=== PATIENT | male | born 1975 | race Caucasian/White ===

== ENCOUNTER 2024-01-14 07:48 | Emergency (ER) | payer OTHER, SELFPAY ==
[2024-01-14] VITALS (7 sets, daily range): BP systolic 108–149; BP diastolic 72–111; PULSE 88–106; RESP 17–21; TEMP 36.4–36.9; O2SAT 97–99
--- NOTE | ~2024-01-14 | CT_ITS ---
EXAMINATION: CT abdomen pelvis w con DATE: 01/14/2024 08:56 INDICATION: Abdominal pain. TECHNIQUE: Computed tomography (CT) of the abdomen and pelvis was performed with 100 mL Omnipaque 350 intravenous contrast. Automated exposure control and iterative reconstruction technique were employe d. The dose-length product was 1723.53 mGy-cm. COMPARISON: CT abdomen and pelvis 06/12/2009 FINDINGS: The visualized portions of the lung bases demonstrate mild atelectasis in the right. No ple ural effusion. The heart size is normal. There is a stent in left anterior descending coronary artery . No pericardial effusion. There are 2 hypodense masses in the liver measuring up to 16 mm. The gallb ladder, spleen, pancreas, and adrenal glands are normal. There are cysts in the kidneys measuring up to 2.4 cm on the left. There is a left inguinal hernia containing fat. There is liquid stool in the c olon suggesting diarrhea. The appendix is normal. There are no pathologically enlarged lymph nodes. T here is no free intraperitoneal fluid. There is mild thoracic and lumbar spondylosis. There is mild c hronic anterior wedging of T12 and L1 vertebral bodies. IMPRESSION: 1. Two liver masses measuring up to 16 mm, which may be benign or metastatic disease, new from 06/12/19 10. Abdomen MRI without and with contrast is recommended. 2. Left inguinal hernia containing fat. Reviewed, dictated and finalized at location A. IMPRESSION: 1. Two liver masses measuring up to 16 mm, which may be benign or metastatic andrea pedersen, new from 06/12/2009. Abdomen MRI without and with contrast is recommended. 2. Left inguinal hernia containing fat.
--- NOTE | ~2024-01-14 | XR_ITS ---
XR chest 2V Ordering provider: Brennon Skelton MD History: 48 years Male with . chest pain N/V . Comparison: March 11, 2023 FINDINGS: MEDIASTINUM: The cardiac silhouette is not enlarged. LUNGS: No infiltrates, effusions or pneumothorax. Slightly prominent markings in the left lung base medially. OTHER: No free air under the diaphragm. Degenerative changes of the spine. IMPRESSION: No acute cardiopulmonary pathology. Reviewed, dictated and finalized at location A.
--- NOTE | 2024-01-14 07:51 | ECG_ITS ---
Test Date: 2024-01-14 07:54:27 Measurements Intervals [place] Rate: 106 P: -1 [place]: 136 QRS: 74 QRSD: 88 T: 52 QT: 320 QTc: 425 Interpretive Statements SINUS TACHYCARDIA BASELINE ARTIFACT- I, II, III, AVR, AVL, AVF BORDERLINE ECG No previous ECG available for comparison Electronically Signed On 01-14-2024 07:56:16 CDT by Mauro Marcos D.O.
[2024-01-14] MEDS: ONDANSETRON INJ 4 MG/2 ML VIAL IV PUSH (08:24)
[2024-01-14] MEDS: SODIUM CHLORIDE 0.9% IV 1,000 ML 999 ML IV CONT (08:24)
[2024-01-14 08:28] LABS: Basophils Absolute Auto 0.1 K/mm3 (0.0-0.1); Basophils Percent Auto 0.5 % (0.2-1.2); Eosinophils Absolute Auto 0.2 K/mm3 (0-0.3); Eosinophils Percent Auto 1.2 % (0-4.4); Hematocrit 45.2 % (42.0-52.0); Immature Granulocyte Percent A 0.7 % (0-0.5); Lymphocytes Absolute Auto 0.48 K/mm3 (0.9-3.2); Lymphocytes Percent Auto 3.2 % (18.3-44.2); Mean Corpuscular HGB Conc 35.4 g/dl (32-36); Mean Corpuscular Hemoglobin 30.5 pg (26-34); Mean Corpuscular Volume 86.3 fl (80-100); Mean Platelet Volume 8.5 fl (7.4-10.4); Monocytes Absolute Auto 0.7 K/mm3 (0.1-0.6); Monocytes Percent Auto 4.9 % (2.6-8.5); Neutrophils Absolute Auto 13.4 K/mm3 (1.3-6.7); Neutrophils Percent Auto 89.5 % (45.5-73.1); Platelet Count Result 229 k/mm3 (150-375); Red Blood Count 5.24 M/mm3 (4.6-6.20); Red Cell Distribution Width 13.9 % (11.5-14.5)
[2024-01-14 08:31] LABS: Alanine Aminotransferase 38 U/L (6-50); Albumin Level 4.4 g/dL (3.5-5.1); Alkaline Phosphatase 91 U/L (38-126); Anion Gap 12 mmol/L (4-12); Aspartate Amino Transferase 30 U/L (17-59); Bilirubin,Total 1.7 mg/dL (0.2-1.3); Blood Urea Nitrogen 26 mg/dL (9-20); Carbon Dioxide 22 mmol/L (22-30); Chloride 100 mmol/L (98-107); Estimated CRCL calculation 85 ml/min; Estimated Glomerular Filt Rate 59; Glucose 127 mg/dL (65-110); Lipase 98 U/L (23-300); Potassium 3.8 mmol/L (3.4-5.0); Sodium 134 mmol/L (137-145)
[2024-01-14 08:43] LABS: Troponin I < 0.012 ng/mL (0.000-0.034)
[2024-01-14] MEDS: ASPIRIN 81 MG CHEWABLE TABLET 324 MG PO (09:11)
[2024-01-14 09:17] LABS: Partial Thromboplastin Time 26.8 Seconds (22.3-36.8)
--- NOTE | 2024-01-14 11:19 | ECG_ITS ---
Test Date: 2024-01-14 11:48:39 Measurements Intervals [place] Rate: 101 P: 14 ID: 163 QRS: 74 QRSD: 85 T: 41 QT: 333 QTc: 433 Interpretive Statements SINUS TACHYCARDIA BASELINE ARTIFACT- I, II, III BORDERLINE ECG Compared to ECG 01/14/2024 07:54:27 No significant changes Electronically Signed On 01-14-2024 12:08:35 CDT by Mauro Marcos D.O.
--- NOTE | 2024-01-14 11:34 | ED.GENADULT ---
HPI - General Adult General Chief complaint: Unspecified Stated complaint: multiple complaints Time Seen by Provider: 01/14/24 08:03 History of Present Illness HPI narrative: Patient is a 40-year-old gentleman presents emergency department with chief complaint of diarrhea and vomiting. Patient reports that he was recently treated for gout and reports that he is currently on colchicine the patient states he has had multiple bouts of diarrhea since last week patient states that he had a little bit of an uncomfortable feeling in his left arm and decided to come to the emergency department as he has had prior history of an [place]. Related Data Allergies Allergy/AdvReac Type Severity Reaction Status Date / Time No Known Allergies Allergy Verified 01/14/24 07:56 Review of Systems Review of Systems: A 10 system review of systems was completed on the patient and is negative except for what is stated in the HPI. Nursing and ancillary documentation was reviewed. Exam Narrative: GENERAL: Well-appearing, well-nourished, and in no acute distress. HEAD: Normocephalic, atraumatic. EYES: PERRLA and EOMI. ENT: Nares clear, no rhinorrhea or epistaxis. Mucous membranes moist. NECK: Supple. CHEST: Clear to auscultation. No respiratory distress. HEART: Regular rate and rhythm. No murmur heard. Normal peripheral pulses. ABDOMEN: Soft, tenderness to palpation throughout the abdomen, nondistended, normal active bowel sounds. EXTREMITIES: Normal range of motion. No edema. SKIN: Warm, dry, no rash. NEURO: No focal deficits. Alert and oriented x3. PSYCH: Normal mood and affect. Course Vital Signs Vital signs: Vital Signs Temperature 36.6 C 01/14/24 07:51 Pulse Rate 106 H 01/14/24 07:51 Respiratory Rate 20 01/14/24 07:51 Blood Pressure 149/101 H 01/14/24 07:51 Pulse Oximetry 97 01/14/24 07:51 Oxygen Delivery Room Air 01/14/24 07:51 Temperature 36.4 C 01/14/24 09:31 Pulse Rate 102 H 01/14/24 11:36 Respiratory Rate 21 H 01/14/24 11:36 Blood Pressure 108/72 01/14/24 11:36 Pulse Oximetry 98 01/14/24 11:36 Oxygen Delivery Room Air 01/14/24 07:51 Medical Decision Making MDM Narrative Medical decision making narrative: Differential diagnosis includes intra-abdominal infection, gastroenteritis, ACS Laboratory studies were obtained on the patient which showed a white count of 15.0 hemoglobin was 16.0 electrolytes showed a bilirubin 1.7 troponin was 0 hour 3 hour An EKG showed no acute ischemic changes Chest x-ray showed no focal infiltrate CT scan of the abdomen pelvis showed 1. Two liver masses measuring up to 16 mm, which may be benign or metastatic disease, new from 06/12/2009. Abdomen MRI without and with contrast is recommended. 2. Left inguinal hernia containing fat Vital Signs Vital Signs: Vital Signs Temperature 36.6 C 01/14/24 07:51 Pulse Rate 106 H 01/14/24 07:51 Respiratory Rate 20 01/14/24 07:51 Blood Pressure 149/101 H 01/14/24 07:51 Pulse Oximetry 97 01/14/24 07:51 Oxygen Delivery Room Air 01/14/24 07:51 Temperature 36.4 C 01/14/24 09:31 Pulse Rate 102 H 01/14/24 11:36 Respiratory Rate 21 H 01/14/24 11:36 Blood Pressure 108/72 01/14/24 11:36 Pulse Oximetry 98 01/14/24 11:36 Oxygen Delivery Room Air 01/14/24 07:51 Lab Data 01/14/24 08:20 01/14/24 08:01 Labs: Lab Results 01/14/24 01/14/24 01/14/24 Range/Units 08:01 08:20 11:09 WBC 15.0 H (4.5-10.0) K/mm3 RBC 5.24 (4.6-6.20) M/mm3 Hgb 16.0 (14.0-18.0) g/dL Hct 45.2 (42.0-52.0) % MCV 86.3 (80-100) fl MCH 30.5 (26-34) pg MCHC 35.4 (32-36) g/dl RDW 13.9 (11.5-14.5) % Plt Count 229 (150-375) k/mm3 MPV 8.5 (7.4-10.4) fl Immature Gran % (Auto) 0.7 H (0-0.5) % Neut % (Auto) 89.5 H (45.5-73.1) % Lymph % (Auto) 3.2 L (18.3-44.2) % Page % (Auto) 4.9 (2.6-8.5) % Eos % (Auto
[2024-01-14 11:38] LABS: Troponin I < 0.012 ng/mL (0.000-0.034)
== END 2024-01-14 13:00 | disposition home or self-care (01) ==
PROVIDERS: Emergency Provider Emergency Medicine; PCP Internal Medicine Infectious Disease
DX: R11.2 Nausea with vomiting, unspecified (principal); R19.7 Diarrhea, unspecified
CPT/HCPCS: 36415; 71046; 74177; 80053; 83690; 84484; 85025; 85610; 85730; 93005; 96361; 96374; 99284; A9270; J2405; J7030; Q9967

== ENCOUNTER 2024-07-28 08:30 | Emergency (ER) | payer OTHER, SELFPAY ==
--- NOTE | ~2024-07-28 | XR_ITS ---
XR elbow RT min 3V Ordering provider: Roberto Graves III, DO History: . swelling, redness, pain, NKI . Comparison: None. FINDINGS: BONES: No acute fracture or dislocation. JOINT SPACES: Normal. SOFT TISSUES: Soft tissue swelling is possibly seen laterally. No definite joint effusion. Ossificati on of the insertion of the triceps tendon. IMPRESSION: No acute osseous abnormality of the right elbow. Ossification of the insertion of the triceps tendon. Reviewed, dictated and finalized at location A.
[2024-07-28 08:37] VITALS: BP 187/107; PULSE 78; RESP 16; TEMP 36.6; O2SAT 99
--- OUTSIDE RECORDS SUMMARY | 2024-07-28 08:54 | XMS_ITS | CONTINUITY OF CARE DOCUMENT ---
Author Name patrice ibrahim Address Unknown Organization [facility] Address [address] [place] [address] Phone [phone] Care Team Providers Care Resort Host Name Role Phone patrice ibrahim Unavailable Unavailable INSURANCE PROVIDERS Payer name Policy type / Coverage type Leo red green party ID [facility] [id number]
--- OUTSIDE RECORDS SUMMARY | 2024-07-28 08:54 | XMS_ITS | Clinical Summary ---
Author Organization [facility] Address [address] [place] [id number] Care Team Providers Care Gift Shop Assistant Name Role Phone Unavailable Primary Care Provider Unavailabl e Social History Tobacco Use Types Packs/Day Years Used Date Smoking Tobacco: Never Assessed Sex and Gender Information Value Date Recorded Sex Assigned at Not on file Legal Sex Male 8:47 PM CDT Gender Identity Not on file Sexual Orientation Not on file Last Filed Vital Signs Vital Sign Reading Time Taken Comments Blood Pressure - - Pulse 72 10/02/2017 3:11 PM CDT Temperature - - Respiratory Rate - - Oxygen Saturation - - Inhaled Oxygen Concentration - - Weight 125.4 kg (276 lb 6.1 oz) 10/02/2017 3:11 PM CDT Height 182.9 cm (6') 10/02/2017 3:11 PM CDT Body Mass Index 37.48 10/02/2017 3:11 PM CDT Plan of Treatment Health Maintenance Due Date Last Done Comments Colorectal Cancer Screening Colonoscopy (10 Years) 1975 Annual Physical 11/12/1978 Hepatitis C 11/12/1993 DTaP, Tdap and Td Vaccines ( 1 - Tdap) 11/12/1994 Hepatitis B Vaccines (1 of 3 - 19+ 3-dose series) 11/12/1994 COVID-19 Vaccine (2023-2 5 season) 2024 Influenza Adult (#1) 2024 Meningococcal B Vaccine Aged Out No l onger eligible based on patient's age to complete this topic Meningococcal Vaccine Aged Out No [place] eligible based on patient's age to complete this topic Pneumococcal Vaccine: Pediat rics (0 to 5 Years) and At-Risk Patients (6 to 64 Years) Aged Out No longer eligible b ased on patient's age to complete this topic RSV Immunizations Under 20 Months Aged Out No longer eligible based on patient's age to complete this topic
--- OUTSIDE RECORDS SUMMARY | 2024-07-28 08:54 | XMS_ITS | Clinical Summary ---
Author Organization [facility] Address [address] [place] [address] Care Team Providers Care Property Management Specialist Name Role Phone Delfino Younger MD Primary Care Provider Allergies Active Allergy Reactions Criticality Noted Date Comments Lisinopril Headache Low 04/06/2023 Medications ibuprofen 200 mg tab/cap Take 1 tablet/capsu le (200 mg total) by mouth every 6 (six) hours as needed for pain Active colchicine (COLCRYS) 0.6 mg tablet Take 1 tablet (0.6 mg total) by mouth daily 01/01/2024 Active atorvastatin (LIPITOR) 40 mg tablet TAKE 1 TABLET BY MOUTH EVERY DAY 90 tablet 3 04/08/2024 Active aspirin 81 mg chewable tablet TAKE 1 TABLET BY MOUTH EVERY DAY 90 tablet 3 04/08/2024 Active lisinopriL (PRINIVIL,ZESTR IL) 40 mg tablet TAKE 1 TABLET BY MOUTH EVERY DAY IN THE MORNING 90 tablet 3 04/08/2024 Active metoprolol XL (TOPROL-XL) 25 mg extended release tablet TAKE 1 TABLET (25 MG TOTAL) BY MOUTH DAILY. 90 tablet 3 04/08/2024 Active Brilinta 90 mg tablet TAKE 1 TABLET BY MOUTH 2 TIMES A DAY. 60 tablet 11 04/14/2024 Active Active Problems Problem Noted Date Diagnosed Date Mixed hyperlipidemia 10/08/2023 Coronary artery disease invo lving [place] coronary artery of [place] heart without angina pectoris 04/06/2023 STEMI (ST elevation myocardial infarction) 03/12 NSTEMI (non-ST elevated myocardial infarction) 1 05/12/2022 Former smoker 02/01/2015 Overview (08/10/2016): Ex smoker Knee pain 02/01/2015 Overview (08/10/2016): Knee pain Hypertension 02/01/2015 Overview (08/10/2016): Hypertension Migraine 02/01/2015 Overview (08/10/2016): Migraines Medical History Medical History Date Comments Hx Other Medical Bone cyst remov al 1983; [facility] - Hx Other Medical Right heel repl aced 1984.; Comments: [facility]2015 - Hx Other Medical Kidney stent 19 & 1993.; Comments: [facility] 02/02/2015 - Hx Other Medical Hernia 2005.; C omments: [facility] 02/02/2015 - Hx Other Medical Abdominal absce ss 2009.; Comments: [facility] 02/[facility]/2015 - Hx Other Medical Right carpal an d cubital tunnel release 2014.; Comments: [facility] 02/02/2015 - Hypertension Family History Medical History Relation Name Comments Valvular heart disease Father Other Other Family history of diabetes, hypertension, and arthritis.; Relation Name Status Comments Father Other Social History Tobacco Use Types Packs/Day Years Used Date Smoking Tobacco: Former Cigarettes Smokeless Tobacco: Never Tobacco Cessation:Counseling Given: Not Answered [facility] Utilities Answer Date Recorded In the past 12 months has Your [employer], [facility], or water [employer] threatened to shut off services in your home? No 03/15/2023 Social Connection and Isolat ion Panel [NHANES] Answer Date Recorded In a typical week, how many times do you talk on the phone with family, friends, or neighbors? More than three times a week 03/15/2023 How often do you get togethe r with friends or relatives? More than three times a week 03/15/2023 How often do you attend [facility] or scientology services? Never 03/15/2023 Do you belong to any clubs o r organizations such as sikhism groups, unions, fraternal or athletic groups, or school groups? No 03/15/2023 How often do you attend meet ings of the clubs or organizations you belong to? Never 03/15/2023 Are you , , di vorced, , never , or living with a partner? 03/15/2023 Overall Financial Resource Strain (CARDIA) Answe r Date Recorded How hard is it for you to pa y for the very basics like food, housing, medical care, and heating? Not hard at all 03/15/2023 Hunger Vital Sign Answer Date Recorded Within the past 12 months, y ou worried that your food would run out before you got the money to buy more. Never true 03/15/20 23 Within the past 12 months, t he food you bought just didn't last and you didn't have money to get more. Never true 03/15/2023 PRAPARE - Transportation Answer Date Re corded In the past 12 months, has l ack of transportation kept you from medical appointments or from getting medications? No 01/2023 In the past 12 months, has l ack of transportation kept you from meetings, work, or from getting things needed for daily living? No 03/15/2023 Housing Stability Vital Sign Answer Parker e Recorded In the last 12 months, was t here a time when you were not able to pay the mortgage or rent on time? No 03/15/2023 In the last 12 months, how many places have you lived? 1 03/15/2023 In the last 12 months, was t here a time when you did not have a steady place to sleep or slept in a half-way (including now)? No 03/15/2023 Personal Safety Answer Date Recorded Have you ever been in or are you currently in a harmful physical or emotional relationship or is someone making you feel afraid or unsafe? 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 Gender Identity Not on file Sexual Orientation Not on file Obstetrics History Last Filed Vital Signs Vital Sign Reading Time Taken Comments Blood Pressure 116/80 01/09/2024 2:20 PM CDT Pulse 86 01/09/2024 2:20 PM CDT Temperature 36.6 C (97.9 F) 03/15/2023 4:00 AM SUPERINTENDENT MARINE Respiratory Rate 22 03/15/2023 10:07 AM SUPERINTENDENT MARINE Oxygen Saturation 98% 01/09/2024 2:20 PM CDT Inhaled Oxygen Concentration - - Weight 122.9 kg (271 lb) 01/09/2024 2:20 PM CDT Height 182.9 cm (6') 01/09/2024 2:20 PM CDT Body Mass Index 36.75 01/09/2024 2:20 PM CDT Plan of Treatment Health Maintenance Due Date Last Done Comments Colon Cancer Screening-Colonoscopy 1975 Depression Screening 1975 Hepatitis C Screening 1975 DTaP/Tdap/Td Vaccine (1 - Tdap) 11/12/1986 Hepatitis B Screening 11/12/1993 Regular Well Visit/Exam 18-64 11/12/1993 Covid-19 Vaccine ( season) 2024 02/26/2021, 08/12/2020 Influenza Vaccine (#1) 2024 , 04/09/2017, 06/01/2016, Additional history exists Pneumococcal vaccine <65 Aged Out No longer eligible based on patient's age to complete this topic Medical Devices Implanted Type Area Cellar Pumper Device Identifier Shelf Expiration Date Model / Serial / Lot [employer] Stent Drug Eluting S Megatron Mr [id number] - [id number] - [id number] Implanted:Qty: 1 on 03/13/2023 by Josiah Del Rosario MD at [facility] Stent Left: Anterior Descending Cornary Artery [employer] 07/04/2023 [id number] / [id number] / [id number] Insurance [facility] CHO[facility] PLUS [facility] CHOICE PLUS [facility] CHOICE PLUS Advance Directives For more information, please contact: [phone] * Full Code (Latest Code Status on File) Date Activated Date Inactivated Comments 03/12/2023 5:49 PM 03/15/2023 3:57 PM Care Teams Property Management Specialist Relationship Specialty Start Date End Date Delfino Younger MD PCP - General Family Medicine 03/15/23
--- OUTSIDE RECORDS SUMMARY | 2024-07-28 08:54 | XMS_ITS | Patient Health Record ---
Author Organization [facility] yessy Address [address] [address] [place] [address] Care Team Providers Care Steam Press Tender Name Role Phone Delfino Younger Primary Care Provider Haylie Miller Unavailable [phone] Allergies No Known Allergies Results Component Value Reference Range Notes CRP (C-REACTIVE PROTEIN) Reviewed date:01/03/2024 11:38:16 AM Interpretation: Performing Lab:[facility], [address] [place] [address], [id number] Notes/Report: C-Reactive Protein 22.0 0.0-10.0 mg/L RHEUMATOID FACTOR (RF), MALINI TITATIVE Reviewed date:01/03/2024 11:38:17 AM Interpretation: Performing Lab:[facility], [address] [place] [address], [id number] Notes/Report: Rheumatoid Factor, Quantitative Interpretation Negative Negative RF, Quantitation <10 <=14 IU/mL URIC ACID Reviewed date:01/03/2024 11:38:17 AM Interpretation: Performing Lab:[facility], [address] [place] [address], [id number] Notes/Report: Uric Acid 9.5 4.4-7.6 mg/dL CMP(COMPREHENSIVE METABOLIC PANEL) Reviewed date:01/03/2024 11:38:17 AM Interpretation: Performing Lab:[facility], [address] [place] [address], [id number] Notes/Report: Sodium 135 133-146 mmol/L Potassium 3.6 3.5-5.1 mmol/L Chloride 99 98-107 mmol/L Carbon Dioxide 26 21-31 mmol/L Anion Gap 10 4-13 mmol/L Blood Urea Nitrogen 17 7-25 mg/dL Creatinine 1.35 0.60-1.30 mg/dL eGFRcr (CKD-EPI 2020) 65 >=60 mL/min/1.73 m2 Calcium 9.6 8.3-10.5 mg/dL Glucose 105 70-100 mg/dL Protein, Total 7.2 6.4-8.3 g/dL Albumin 4.2 3.5-5.0 g/dL ALT 13 11-51 units/L Alkaline Phosphatase 107 34-104 units/L AST 12 13-39 units/L Bilirubin, Total 2.5 0.2-1.2 mg/dL CBC W/DIFF Reviewed date:01/03/2024 11:38:17 AM Interpretation: Performing Lab:[facility], [address] [facility], [place], [address] Notes/Report: WBC 12.7 3.5-10.5 10'3/uL RBC 5.14 (Based on docume nted legal sex) 4.30-5.80 10'6/uL HGB 15.1 (Based on docume nted legal sex) 13.0-17.5 g/dL HCT 43.9 (Based on docume nted legal sex) 38.0-50.0 % MCV 85.4 80.0-99.0 fL MCH 29.4 27.0-34.0 pg MCHC 34.4 32.0-35.5 g/dL RDW 13.6 11.0-15.0 % PLT 239 150-400 10'3/uL MPV 9.1 8.8-12.1 fL NRBC's 0.0 0.0 % Absolute NRBCs 0.0 No reference ran ge established 10'3/uL Neutrophils 83.6 34.0-73.0 % Lymphocytes 9.2 15.0-50.0 % Monocytes 5.5 1.0-15.0 % Eosinophils 0.8 0.0-8.0 % Basophils 0.7 0.0-2.0 % Immature Granulocytes 0.2 No defined reference range % Absolute Neutrophils 10.6 1.5-8.0 10'3/uL Absolute Lymphocytes 1.2 1.0-4.0 10'3/uL Absolute Monocytes 0.7 0.2-1.0 10'3/uL Absolute Eosinophils 0.1 0.0-0.6 10'3/uL Absolute Basophils 0.1 0.0-0.3 10'3/uL Absolute Immature Granulocytes 0.0 0.00-0.10 10'3/uL 01/02/2024 5:16 AM: P indicates partial results on a panel have been released. Additional results will follow. 01/02/2024 5:16 AM: This result has been final verified. No additional or changed results are expected. SEDIMENTATION RATE, ESR Reviewed date:01/03/2024 11:38:17 AM Interpretation: Performing Lab:[facility], [address] [place] [address], [id number] Notes/Report: Sedimentation Rate 66 (Based on doc umented legal sex) 0-15 mm/Hour CYCLIC CITRULLINATED PEPTIDE (CCP) AB, IgG/IgA Reviewed date:01/03/2024 11:38:17 AM Interpretation: Performing Lab:[facility], [address] [place] [address], [id number] Notes/Report: CCP Antibodies 5 0-19 units Negative <20 Weak positive 20 - 39 Moderate positive 40 - 59 Strong positive >59 Performed at: [address] [place] [id number] Teacher Visually Impaired: Murray Wolfe PhD, Phone: [phone] G6PD, QUANTITATIVE, RBC Reviewed date:01/03/2024 11:38:17 AM Interpretation: Performing Lab:[address], [address] Notes/Report: G-6-PD, RBC 20.6 7.0-20.5 U/g Hgb Performing Organization Information: Site ID: Name[facility] Address: [address] [place] [id number] Director: Callum Valencia MIA SCREEN/REFLEX TITER/STEPHANIE LEAH Reviewed date:01/03/2024 11:38:17 AM Interpretation: Performing Lab:[address], [address] Notes/Report: Anti-Nuclear Antibody Negative Negative MIA titers and patterns are performed using an immunofluorescence assay technology. Follow up testing for positive specimens, if required, is performed using multiplex bead technology. Reason For Referral No Information Medications Medication SIG (Take, Route, Frequency, Duration) Notes Start Date End Date Status Metoprolol Succinate ER 25 MG 1 tablet O rally Once a day for 30 day(s) Active Atorvastatin Calcium 40 MG 1 tablet Oral ly Once a day for 30 day(s) Active Colchicine 0.6 MG TAKE 1 TABLET BY MACI TH TWICE A DAY FOR 30 DAYS for 30 Active Brilinta 90 MG TAKE 1 TABLET BY MACI TH 2 TIMES A DAY. Oral for 30 Days Active hydroCHLOROthiazide 25 MG 1 tablet in th e morning Orally Once a day for 30 day(s) Active Lisinopril 40 MG 1 tablet Orally Once a day for 30 day(s) Active Aspirin 81 81 MG 1 tablet Orally Once a day for 30 day(s) Active Social History Tobacco Use: Social History Observation Description Date Details (start date - stop date) Former Smoker NA - NA Tobacco Control (Standard) Question Answer Notes Tobacco use: Former smoker How long has it been since you last smoked? 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) Active confirmed Problem Tobacco user (807858567) Nicotine dependence, unspecified, uncomplicated (F17.200) 3 Active confirmed Problem Adult health examination (083739585) Encounter for general adult medical examination without abnormal findings (Z00.00) 3 Active confirmed Problem Essential hypertension (13739454) Essential (primary) hypertension (I10) 3 Active confirmed Vital Signs Heart Rate 93 /min 01/01/2024 Temperature 98.1 degrees Fahrenheit 01/01/2024 Height-cm 182.88 cm 12/24/2023 Blood pressure diastolic 80 mm Hg 01/01/2024 Oximetry 98 % 01/01/2024 Weight-kg 123.17 kg 12/24/2023 Height 72 in 01/01/2024 Blood pressure systolic 110 mm Hg 01/01/2024 Weight 271.6 lbs 12/24/2023 BMI 36.83 kg/m2 12/24/2023 Encounters Encounter Location Date Provider Diagnosis [facility] [address] [place] [address] 09/06/2023 Delfino Aren Impacted cerumen of right ear H61.21 ; Tobacco use disorder, severe, in sustained remission F17.201 and Mid back pain M54.9 [facility] [address] [place] [address] 12/24/2023 Delfino Aren Acute gout of left foot, unspecified cause M10.9 [facility] [address] [place] [address] 01/01/2024 Haylie Miller Pain in unspecified joint M25.50 ; Idiopathic chronic gout of right foot without tophus M1A.0710 and Pain of foot, unspecified laterality M79.673 [facility] [address] [place] [address] 11/22/2023 Delfino Aren [facility] [address] [place] [address] 12/10/2023 Delfino Aren [facility] [address] [place] [address] 12/24/2023 Delfino Barriosi Assessments Encounter Date Diagnosis (ICD Code) Assessment Notes Treatment Notes Treatment Clinical Notes Section Notes 09/06/2023 Tobacco use disorder, severe, in sustained remission (ICD-10 - F17.201) - since his NSTEMI in March 2023, he has completely stopped smoking cigarrettes. 12/24/2023 Acute gout of left foot, unspecified cause (ICD-10 - M10.9) - flare almost completely resolved with steroid tx from ER last week - has had multiple flares this past summer; has been watching his diet and doesn't drink much alcohol - will plan on starting allopurinol, but given his relatively recent coronary stenting after an NH and his current DAPT, it could be risky having him on daily NSAIDs for 3 to 6 months. - will refer to Dr. Miller with Rheumatology for her recommendations. - did also discuss holding HCTZ for now and monitoring BP 01/01/2024 Pain in unspecified joint (ICD-10 - M25.50) 48 year old male with gout flares involving the feet. He was treated with steroids in the past. He will start a medrol pack and colchicine 0.6mg bid. He will stay on colchicine until gout is controlled. Labs will be done today. He will return in 2 weeks. He will start allopurinol when he is symptom free. HCTZ makes it difficult to control gout. It may have to be changed to something else. Thank you for referring this patient. cc Dr. Younger 09/06/2023 Impacted cerumen of right ear (ICD-10 - H61.21) - acute - ear washout done in clinic today by MA - significant improvement in symptoms after washout 01/01/2024 Idiopathic chronic gout of right foot without tophus (ICD-10 - M1A.0710) 48 year old male with gout flares involving the feet. He was treated with steroids in the past. He will start a medrol pack and colchicine 0.6mg bid. He will stay on colchicine until gout is controlled. Labs will be done today. He will return in 2 weeks. He will start allopurinol when he is symptom free. HCTZ makes it difficult to control gout. It may have to be changed to something else. Thank you for referring this patient. cc Dr. Younger 09/06/2023 Mid back pain (ICD-10 - M54.9) - x2 months; no trauma - occurs intermittently with movement; non-radiating - needs note allowing accomodation for a larger vehicle at work as his current work vehicle is small and it is painful for him to get in and out of such a small low car. Note written and given to patient. 01/01/2024 Pain of foot, unspecified laterality (ICD-10 - M79.673) 48 year old male with gout flares involving the feet. He was treated with steroids in the past. He will start a medrol pack and colchicine 0.6mg bid. He will stay on colchicine until gout is controlled. Labs will be done today. He will return in 2 weeks. He will start allopurinol when he is symptom free. HCTZ makes it difficult to control gout. It may have to be changed to something else. Thank you for referring this patient. cc Dr. Younger Plan Of Treatment No Information Insurance Providers Payer Name Payer Address Payer Phone Subscriber Number Group Number Insured Name Patient Relationship to Insured Coverage Start Date Coverage End Date [facility] [employer] [address] [place] [phone] [id number] Gualberto Lynch Self - patient is the insured Medical (General) History Medical History History ICD Code Hypertension Tobacco use disorder- in remission CAD, single vessel disease; NSTEMI s/p D ES to LAD Surgical History Surgery Date(Month/Year) Right foot reconstruction (in 5th grade) Right kidney stones (larger): had stents , lithotripsy ulnar nerve transposition, right carpal tunnel release, right Abdominal washout for intra- abdominal staph infection (unknown if MRSA) periumbilical hernia repair, right; no m esh HANG to LAD 03/2023 Hospitalization History Reason Date(Month/Year)
--- OUTSIDE RECORDS SUMMARY | 2024-07-28 08:55 | XMS_ITS | Clinical Summary ---
Author Organization [facility] Address [address] [place] [address] Phone Care Team Providers Care Beef Boner Name Role Phone Provider, Not On File Primary Care Provider Unav ailable Allergies No known active allergies Medications naproxen (NAPROSYN) 500 MG Tablet Take 1 Tablet by mouth 2 times daily as needed for Mild or more severe pain. 20 Tablet 07/27/2022 Active Social History Tobacco Use Types Packs/Day Years Used Date Smoking Tobacco: Never Smokeless Tobacco: Never Tobacco Cessation:Counseling Given: Not Answered Sex and Gender Information Value Date Recorded Sex Assigned at Not on file Legal Sex Male 9:04 AM CDT Gender Identity Not on file Sexual Orientation Not on file Last Filed Vital Signs Vital Sign Reading Time Taken Comments Blood Pressure 99/63 12/14/2023 3:15 PM CDT Pulse 88 12/14/2023 3:15 PM CDT Temperature 36.1 C (97 F) 12/14/2023 3:05 PM CDT Respiratory Rate 18 12/14/2023 3:06 PM CDT Oxygen Saturation 99% 12/14/2023 3:15 PM CDT Inhaled Oxygen Concentration - - Weight 117.9 kg (260 lb) 12/14/2023 3:05 PM CDT Height 182.9 cm (6') 12/14/2023 3:05 PM CDT Body Mass Index 35.26 12/14/2023 3:05 PM CDT Plan of Treatment Health Maintenance Due Date Last Done Comments Hepatitis C Virus (HCV) Screening 1975 TdaP Immunization 1975 Hepatitis B Immunization (1 of 3 - 19+ 3-dose series) 11/12/1994 Colonoscopy 11/12/2020 Colorectal Cancer Screening 11/12/2020 Influenza Immunization (#1) 01/06/202409/2019, 04/09/2017, 06/01/2016 SARS-COV-2 Immunization (3 - 2023- season) 2024 02/26/2021, 08/12/2020 Respiratory Syncytial Virus (RSV) Immunization (Adult) (1 - 1-dose 75+ series) 11/12/2050 Meningococcal Immunization (ACWY) Aged Out No longer eligible b ased on patient's age to complete this topic Pneumococcal Immunization Combined Aged Out No longer eligible b ased on patient's age to complete this topic Rotavirus Immunization Aged Out No lo nger eligible based on patient's age to complete this topic [place] [place] [address] Care Teams Beef Boner Relationship Specialty Start Date End Date Provider, Not On File PR PCP - General 12/14/23
--- OUTSIDE RECORDS SUMMARY | 2024-07-28 08:55 | XMS_ITS ---
Author Organization [facility] yessy Address [address] [facility] [address] [place] [address] Care Team Providers Care Apprentice Electrician Name Role Phone Delfino Younger Primary Care Provider [phone] Allergies No Known Allergies REASON FOR VISIT repeat gout flare-ups Medications Medication SIG (Take, Route, Frequency, Duration) [...] Once a day for 30 day(s) Active Losartan Potassium-HCTZ 50-12.5 MG take 1 tablet by oral route once daily Oral 1 Not-Taking hydroCHLOROthiazide 25 MG 1 tablet in th e morning Orally Once a day for 30 day(s) Active Brilinta 90 MG TAKE 1 TABLET BY MOUTH 2 TIMES A DAY. Oral for 30 Days Active Social History Tobacco Use: Social History Observation Description Date Details (start date - stop date) Former Smoker NA - NA Tobacco Control (Standard) Question Answer Notes Tobacco use: Former smoker How long has it been since you last smoked? 6-12 months Vital Signs Temperature 98.2 degrees Fahrenheit 12/24/19 24 Blood pressure systolic 130 mm Hg 12/24/19 24 Blood pressure diastolic 80 mm Hg 024 Heart Rate 80 /min 12/24/2023 Height 72 in 12/24/2023 Weight 271.6 lbs 12/24/2023 BMI 36.83 kg/m2 12/24/2023 Oximetry 97 % 12/24/2023 Height-cm 182.88 cm 12/24/2023 Weight-kg 123.17 kg 12/24/2023 Encounters Encounter Location Date Provider Diagnosis [facility] [address] [place] [address] 12/24/2023 Delfino Younger Acute gout of left foot, unspecified cause M10.9 Assessments Encounter Date Diagnosis (ICD Code) Assessment Notes Treatment Notes Treatment Clinical Notes Section Notes 12/24/2023 Acute gout of left foot, unspecified cause (ICD-10 - M10.9) - flare almost completely resolved with steroid tx from ER last week - has had multiple flares this past summer; has been watching his diet and doesn't drink much alcohol - will plan on starting allopurinol, but given his relatively recent coronary stenting after an [place] and his current DAPT, it could be risky having him on daily NSAIDs for 3 to 6 months. - will refer to Dr. Miller with Rheumatology for her recommendations. - did also discuss holding HCTZ for now and monitoring BP Plan Of Treatment Treatment Notes Assessment Notes Acute gout of left foot, unspecified cau se - flare almost completely resolved with steroid tx from ER last week - has had multiple flares this past summer; has been watching his diet and doesn't drink much alcohol - will plan on starting allopurinol, but given his relatively recent coronary stenting after an [place] and his current DAPT, it could be risky having him on daily NSAIDs for 3 to 6 months. - will refer to Dr. Miller with Rheumatology for her recommendations. - did also discuss holding HCTZ for now and monitoring BP Progress Notes * Olga GILESOB: 6 (48 yo M)Acc No.[id number]:12/24/2023 follow up Patient: Gualberto JACOBS Provider: Buffy YOUNGER MD :1975 A ge:48 Y S ex:Male Date:12/24/2023 Address:[address] [facility] [place] Subjective: * Chief Complaints: * R epeat gout flare-ups * HPI: G eneral Follow up: Gout flares - left foot, 1st MTP join; still hurts but is improving - has had about 4 flare ups this past summer; most recent about a week ago, went to ER, got steroid course for 1 week - is on HCTZ - is on DAPT after having STEMI with subsequent placement of HANG in 03/2023. * Medical History: * Surgical History: R ight foot reconstruction (in 5th grade) Right kidney stones (larger): had stents, lithotripsy ulnar nerve transposition, right carpal tunnel release, right Abdominal washout for intra-abdominal staph infection (unknown if MRSA) periumbilical hernia repair, right; no mesh HANG to LAD 03/2023 * Hospitalization/Major Diagno stic Procedure: N o Hospitalization History. * Family History: - HTN: mother- DM: mother. * Social History: T obacco Use: T obacco Control (Standard) T obacco use: F ormer smoker H ow long has it been since you last smoked??6-12 months * Medications: T akingAtorvastatin Calcium 40 MG Tablet 1 tablet Orally Once a day Metoprolol Succinate ER 25 MG Tablet Extended Release 24 Hour 1 tablet Orally Once a day Lisinopril 40 MG Tablet 1 tablet Orally Once a day hydroCHLOROthiazide 25 MG Tablet 1 tablet in the morning Orally Once a day Brilinta 90 MG Tablet TAKE 1 TABLET BY MOUTH 2 TIMES A DAY. Oral Aspirin 81 81 MG Tablet Chewable 1 tablet Orally Once a day Taking Atorvastatin Calcium 40 MG Tablet 1 tablet Orally Once a day Taking Metoprolol Succinate ER 25 MG Tablet Extended Release 24 Hour 1 tablet Orally Once a day Taking Lisinopril 40 MG Tablet 1 tablet Orally Once a day Taking hydroCHLOROthiazide 25 MG Tablet 1 tablet in the morning Orally Once a day Taking Brilinta 90 MG Tablet TAKE 1 TABLET BY MOUTH 2 TIMES A DAY. Oral Taking Aspirin 81 81 MG Tablet Chewable 1 tablet Orally Once a day Not-TakingLosartan Potassium-HCTZ 50-12.5 MG Tablet take 1 tablet by oral route once daily Oral 1 Medication List reviewed and reconciled with the patientNot-Taking Losartan Potassium-HCTZ 50-12.5 MG Tablet take 1 tablet by oral route once daily Oral 1 Medication List reviewed and reconciled with the patient * Allergies: N .K.D.A.no[Allergies Verified] Objective: * Vitals: B P:130/80mm Hg, HR:80/min, Temp:98.2F, Oxygen sat %:97%, Wt:271.6lbs, Wt- k.17kg, Ht:72in, Ht-cm:182.88cm, BMI:36.83Index, Body Surface Area:2.5. * Physical Examination: Left Foot: no edema or erythema, no visible deformity. Assessment: * Assessment: 1. A cute gout of left foot, unspecified cause - M10.9 (Primary) Plan: * Treatment: * Procedure Codes: * Billing Information: * Visit Code: 17494 Office Visit, Est Pt., Level 3. * Procedure Codes: * Sign off status: Completed true * Provider: Buffy YOUNGER MD Date: 12/24/2023 Generated for Luis Antonio prado/Abril/Sher on: 0 07/28/2024 08:55 AM CDT History and Physical Notes * HPI (History of Present Illness) Category Sub-Category Detail Notes Category Not es General Follow up Gout flares - left foot, 1st MTP join; still hurts but is improving - has had about 4 flare ups this past summer; most recent about a week ago, went to ER, got steroid course for 1 week - is on HCTZ - is on DAPT after having STEMI with subsequent placement of HANG in 03/2023 Physical Examination Category Sub-Category Detail Notes Section Note s Left Foot: no edema or erythema, no visible deformity
--- OUTSIDE RECORDS SUMMARY | 2024-07-28 08:55 | XMS_ITS | Data Portability ---
Author Organization [place] - [facility], Main Office Address [address] [place] [address] Care Team Providers Care Natural Sciences Manager Name Role Phone MARSHALL FLORES Deputy Director Of Nursing Assessment Encounter Date Assessment Date Assessment LastModified by Organization Details LastModified Time 08/09/2022 08/09/2022 46-year-old male presenting for evaluation of his left foot. He was walking his dog when he got jerked up by the leash and stepped awkwardly, and felt a tearing sensation on the bottom of his foot. This happened a couple of weeks ago. Since then, he has taken naproxen and modified X his activities. His pain is improving, and he has started walking more about a week ago. 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 Review of systems per patient questionnaire Physical exam: No swelling ecchymosis. He has tenderness palpation over the insertion of plantar fascia. He has discomfort with forced dorsiflexion. He is able to flex extend his toes. Neurovascular intact throughout. X-rays of the foot were reviewed, demonstrating no acute bony abnormalities. He has plantar fasciitis or tearing of the plantar fascia. No continue conservative management with meloxicam. He should continue to wear a stiff-soled shoe or supportive shoe. We will have him follow-up in 2-3 weeks. [email or web address] Not available 08/09/2022 11:17:00 Plan of Treatment Reminders Order Date Submit Date Provider Last Modified By Organization Details Last Modified Time Details Appointments None record ed. Lab None record ed. Referral None record ed. Procedures None record ed. Surgeries None record ed. Imaging None record ed. Medication Orders None record ed. Patient TargetsNo targets recorded. Patient InstructionsNo instructions recorded. Reason for Referral None Reported. Results Created Date Observation Date Name Description Value Unit Range Abnormal Flag Note LastModifiedBy Organization Detail LastModifiedTime 07/29/1907/27/2022 XR, foot, 3 or more view No observ ation record ed. [email or web address] Not Available 07/06 11:23:56 Result Notes None recorded. Problems Name Problem SNOMED Code Status Onset Date Resolution Date Notes Provider Name and Address Organization Details Recorded Time Excessive cerumen in ear canal 261560884 Completed Not Available [facility] 3 08:22:37 Anterior knee pain 393177548 Active Not Available [facility] 3 08:22:37 Low back pain 402193076 Active Not Available [facility] 3 08:22:37 Lesion of ulnar nerve 605308279 Active Not Available [facility] 3 08:22:37 Hypertens gerri disorder 32092793 Active Not Available [facility] 3 08:22:37 Spasm 81286130 Active Not Available [facility] 3 08:22:37 Hyperlipi demia 32537024 Active Not Available [facility] 3 08:22:37 Disorder of bursa of shoulder region 52804918 Active Not Available [facility] 3 08:22:37 Carpal tunnel syndrome 65939890 Active Not Available [facility] 3 08:22:37 Diarrhea 75894908 Active Not Available [facility] 3 08:22:37 Rhinitis 28377259 Active Not Available [facility] 3 08:22:38 Pain in left foot 04596167904 9107 Active 2022 Cheryl Todd CNA null, [place] - [facility] 3 09:04:33 Plantar fasciitis of left foot 63578093178 955897 Active 2022 Casa Ramirez MD [address] [place] [address], [place], [address] , [facility] - [facility] [employer] [facility] 3 11:17:09 Problem Notes None recorded. Procedures Surgical History Date Name Laterality Status Provider Name and Address Organization Details Recorded Time 5 Carpal tunnel completed Cheryl ToddYARELIA [facility] 08/09/2022 09:15:54 0 operation on stomach completed Cheryl Todd PERFECT BIND MACHINE OPERATOR [facility] 08/09/2022 09:16:34 5 Foot Surgery completed Cheryl Todd [facility] 08/09/2022 09:15:32 Imaging Results Imaging Date Name Status LastModified by Organiz ation Details LastModified Time 07/27/2022 XR, foot, 3 or more view completed [email or web address] Information not available 07/28/2022 11:23:56 Procedure Notes None recorded. Medical Equipment None Reported. Allergies Allergen ID Allergen Name Allergen Category Reaction Reaction Severity Criticality Documentation Date Start Date Code Code System Note Provider Name and Address Organization Details Recorded Time lisinopri l medicatio n headache Not available Not available 07/05/2022 98863 RxNorm Not Available [facility] 08:25:54 Medications Name Sig Start Date Stop Date Status Note LastModified by Organization Details LastModified Time losartan 50 mg tablet TAKE 1 TABLET BY MOUTH EVERY DAY 03/11 completed Not Available Not Available Not Available cyclobenzap rine 10 mg tablet TAKE 1 TABLET BY MOUTH 3 TIMES A DAY NEEDED FOR MUSCLE REFLXER active Not Available Not Available No t Available amoxicillin 500 mg capsule TAKE 1 CAPSULE BY MOUTH THREE TIMES A DAY UNTIL GONE 08/09 completed Not Available Not Available Not Available doxycycline hyclate 100 mg capsule Take 1 capsule twice a day by oral route for 14 days. active Not Available Not Available No t Available ketoconazol e 2 % shampoo APPLY TO THE AFFECTED AREA(S), LATHER, LEAVE IN PLACE FOR 5 MINUTES, AND THEN RINSE OFF WITH WATER BY TOPICAL ROUTE ONCE DAILY. active Not Available Not Available No t Available azithromyci n 250 mg tablet Take 2 TABLET EVERY DAY by oral route for 1 day. Than 1 tablet for 4 days 11/14 completed Not Available Not Available Not Available ibuprofen 800 mg tablet TAKE 1 TABLET BY MOUTH 3 TIMES A DAY NEEDED FOR FEVER OR PAIN active PRN Not Available Not Available No t Available hydrocodone 5 mg-acetamin ophen 325 mg tablet 10/17 /2017 completed Not Available Not Available Not Available meloxicam 15 mg tablet TAKE 1 TABLET BY MOUTH ONCE DAILY IN THE MORNING active Not Available Not Available No t Available Flonase 50 mcg/actuati on nasal spray,suspe nsion Inhale 2 spray(s) EVERY DAY each nostril by intranasa l route. active Not Available Not Available No t Available acetaminoph en 300 mg-codeine 30 mg tablet TAKE 1 TABLET BY MOUTH FOUR TIMES A DAY NEEDED 08/09 completed Not Available Not Available Not Available Tamiflu 75 mg capsule active Not Available Not Available N ot Available alprazolam 0.5 mg tablet Take 1 tablet twice a day by oral route for 30 days. active Not Available Not Available No t Available amoxicillin 875 mg tablet TAKE 1 TABLET BY MOUTH EVERY 12 HOURS 08/09 completed Not Available Not Available Not Available methocarbam ol 750 mg tablet Take 1 tablet 3 times a day by oral route as needed for 10 days. active Not Available Not Available No t Available benzonatate 100 mg capsule TAKE ONE CAPSULE BY MOUTH 3 TIMES A DAY NEEDED 04/24 completed Not Available Not Available Not Available cephalexin 500 mg capsule TAKE 1 CAPSULE BY MOUTH THREE TIMES A DAY FOR 10 DAYS 02/26 completed Not Available Not Available Not Available neomycin-po lymyxin-dex ameth 3.5 mg/mL-10,00 0 unit/mL-0.1 % eye drops INSTILL 1 DROP INTO LEFT EYE FOUR TIMES A DAY SHAKE WELL 11/14 completed Not Available Not Available Not Available indomethaci n 50 mg capsule TAKE 1 CAPSULE BY MOUTH EVERY 8 HOURS UNTIL PAIN IS TOLERABLE , THEN DISCONTIN UE. 02/20 completed Not Available Not Available Not Available diclofenac sodium 75 mg tablet,manuel yed release TAKE 1 TABLET BY MOUTH TWICE A DAY WITH FOOD active Not Available Not Available No t Available hydrochloro thiazide 25 mg tablet TAKE 1 TABLET BY MOUTH EVERY DAY 03/11 completed Not Available Not Available Not Available mupirocin 2 % topical ointment APPLY A SMALL AMOUNT TO THE AFFECTED AREA BY TOPICAL ROUTE 3 TIMES PER DAY 01/12 completed Not Available Not Available Not Available Cheratussin AC 10 mg-100 mg/5 mL oral liquid active Not Available Not Available Not Available ibuprofen 600 mg tablet 04/24 completed Not Available Not Available Not Available methylpredn isolone 4 mg tablets in a dose pack TAKE 6 TABLETS ON DAY 1 DIRECTED ON PACKAGE AND DECREASE BY 1 TAB EACH DAY FOR A TOTAL OF 6 DAYS 01/12 completed Not Available Not Available Not Available losartan 50 mg-hydrochl orothiazide 12.5 mg tablet TAKE 1 TABLET BY MOUTH EVERY DAY active Not Available Not Available No t Available ondansetron 4 mg disintegrat ing tablet active Not Available Not Available N ot Available losartan 100 mg tablet TAKE ONE HALF TABLET BY MOUTH ONCE DAILY 01/12 completed Not Available Not Available Not Available naproxen 500 mg tablet TAKE 1 TABLET BY MOUTH TWICE A DAY NEEDED FOR MILD OR MORE SEVERE PAIN active Not Available Not Available No t Available amoxicillin 875 mg-potassiu m clavulanate 125 mg tablet Take 1 tablet every 12 hours by oral route for 10 days. 03/11 completed Not Available Not Available Not Available cyclobenzap rine 5 mg tablet Take 1 tablet every day by oral route at bedtime for 30 days. active Not Available Not Available No t Available Chantix Continuing Month Box 1 mg tablet Take as directed active Not Available Not Available No t Available Chantix Starting Month Box 0.5 mg (11)-1 mg (42) tablets in dose pack USE DIRECTED 02/26 completed Not Available Not Available Not Available Kerydin 5 % topical solution with applicator APPLY TO AFFECTED TOENAIL(S ) BY TOPICAL ROUTE ONCE DAILY 02/20 completed Not Available Not Available Not Available Flucelvax Quad [id number] (PF) 60 mcg (15 mcg x 4)/0.5 mL IM syringe TO BE ADMINISTE RED BY PHARMACIS T FOR IMMUNIZAT ION active Not Available Not Available No t Available Fluzone Quad (PF) 60 mcg (15 mcg x 4)/0.5 mL IM syringe PHARMACY ADMINISTE RED 03/11 completed Not Available Not Available Not Available Vitals Date Recorded Body height Body mass index (BMI) Body weight Provider Name and Address Organization Details Last Updated DateTime 08/09/2022 182.88 cm 35.3 kg/m2 043020.02 g Cheryl Todd CNA [place] [facility] 08/09/2022 09:12:14 Social History Question Answer Notes LastModified by Organizat ion Details LastModified Time Tobacco Smoking Status Current Every Day Smoker Cheryl QueenDINA murillo null, [place] - [facility] [place] [employer] [facility] 08/09/2022 09:14:23 What Is Your Occupation? [id number] Information not available 07/05/2022 How Much Tobacco Do You Smoke? 1 PPD Information not available 08/09/2022 How Many Years Have You Smoked Tobacco? 7 Information not available 08/09/2022 Sex: Unknown Functional Status None recorded. Mental Status None recorded. Family History Relationship Description Onset Age of this Age Resolved Age Notes LastModified by Organization Details LastModified Time Mother Hypertensive disorder [email or web address] Not available 2022 09:13:40 Mother Diabetes mellitus [email or web address] Not available 2022 09:13:53 Medical History Condition Response GOUT Y HYPERTENSION Y Immunizations Vaccine Type Date Status Note Provider Nam e and Address Organization Details Recorded Time Influenza, split virus, quadrivalent, preservative 0 completed Not Available [facility] 07/05/2022 08:25:48 Influenza, split virus, quadrivalent, PF 7 completed Not Available [facility] 07/05/2022 08:25:48 Influenza, MDCK, quadrivalent, PF 7 completed Not Available [facility] 07/05/2022 08:25:49 Past Encounters Encounter ID Performer Location Encounter Start Date Encounter Closed Date Diagnosis/Indication Diagnosis SNOMED-CT Code Diagnosis ICD10 Code Diagnosis Note [id number] Casa Ramirez MD [facility] [place] [address] [place] [address] 08/09/2022 08:55:40 08/09/2022 09:39:37 Pain in left foot 3507957890 79661 M79.672 Plantar fa sciitis of left foot 4795682757 1062881 M72.2 Health Concerns Section Related Observation LastModified by Organization Detai ls LastModified Time None Recorded Concern Status LastModified by Organization Details LastModified Time None Recorded Advance Directives Directive None Recorded Payers Encounter Date Sequence Insurance Name Policy Number Policy Massey Covered Member ID Massey Member ID Guarantor Name 08/09/2022 1 [facility] [id number] Gualberto Lynch [id number] Gualberto Lynch
--- OUTSIDE RECORDS SUMMARY | 2024-07-28 08:55 | XMS_ITS | Referral Summary ---
Author Organization [facility] Address [address] [place] [address] Care Team Providers Care Underwear Hemmer Name Role Phone Delfino Younger MD Primary [...] hyperlipidemia 10/08/2023 Coronary artery disease invo lving venetie ira coronary artery of venetie ira heart without angina pectoris 04/06/2023 STEMI (ST elevation myocardial infarction) 03/12 NSTEMI (non-ST elevated myocardial infarction) 1 05/12/2022 Former smoker 02/01/2015 Overview (08/10/2016): Ex smoker Knee pain 02/01/2015 Overview (08/10/2016): Knee pain Hypertension 02/01/2015 Overview (08/10/2016): Hypertension Migraine 02/01/2015 Overview (08/10/2016): Migraines Social History Tobacco Use Types Packs/Day Years Used Date Smoking Tobacco: Former Cigarettes Smokeless Tobacco: Never Tobacco Cessation:Counseling Given: Not Answered [facility] Utilities Answer Date Recorded In the past 12 months has [employer], gas, oil, or water [employer] threatened to shut off services in your [...] week 03/15/2023 How often do you attend chur ch or taoist services? Never 03/15/2023 Do you belong to any clubs o r organizations such as druze groups, unions, fraternal or athletic groups, or [...] place to sleep or slept in a detention (including now)? No 03/15/2023 Personal Safety Answer Date Recorded Have you ever been in or are you currently in a harmful physical or emotional relationship or is someone making you feel afraid or unsafe? 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 Gender Identity Not on file Sexual Orientation Not on file Last Filed Vital Signs Vital Sign Reading Time Taken Comments Blood Pressure 116/80 01/09/2024 2:20 PM CDT Pulse 86 01/09/2024 2:20 PM CDT Temperature 36.6 C (97.9 F) 03/15/2023 4:00 AM FISH CAKE MAKER Respiratory Rate 22 03/15/2023 10:07 AM FISH CAKE MAKER Oxygen Saturation 98% 01/09/2024 2:20 PM CDT Inhaled Oxygen Concentration - - Weight 122.9 kg (271 lb) 01/09/2024 2:20 PM CDT Height 182.9 cm (6') 01/09/2024 2:20 PM CDT Body Mass Index 36.75 01/09/2024 2:20 PM CDT Plan of Treatment Not on file Medical Devices Implanted Type Area Kitchen Clerk Device Identifier Shelf Expiration Date Model / Serial / Lot [employer] Stent Drug Eluting S Megatron Mr [id number] - [id number] - [id number] Implanted:Qty: 1 on 03/13/2023 by Josiah Del Rosario MD at [facility] Stent Left: Anterior Descending Cornary Artery [employer] Veda 07/04/2023 [id number] / [id number] / [id number] Insurance [facility] CHOICE PLUS [facility] CHO[facility] PLUS [facility] CHOICE PLUS Advance Directives For more information, please contact: [phone] * Full Code (Latest Code Status on File) Date Activated Date Inactivated Comments 03/12/2023 5:49 PM 03/15/2023 3:57 PM Care Teams Underwear Hemmer Relationship Specialty Start Date End Date Delfino Younger MD PCP - General Family Medicine 03/15/23
[2024-07-28 10:56] LABS: Basophils Absolute Auto 0.2 K/mm3 (0.0-0.1); Basophils Percent Auto 1.7 % (0.2-1.2); Eosinophils Absolute Auto 1.1 K/mm3 (0-0.3); Eosinophils Percent Auto 9.5 % (0-4.4); Hematocrit 45.9 % (42.0-52.0); Hemoglobin 15.9 g/dL (14.0-18.0); Immature Granulocyte Absolute 0.04 K/mm3 (0.00-0.031); Immature Granulocyte Percent A 0.3 % (0-0.5); Lymphocytes Absolute Auto 1.87 K/mm3 (0.9-3.2); Lymphocytes Percent Auto 16.2 % (18.3-44.2); Mean Corpuscular HGB Conc 34.6 g/dl (32-36); Mean Corpuscular Hemoglobin 29.6 pg (26-34); Mean Corpuscular Volume 85.5 fl (80-100); Mean Platelet Volume 8.6 fl (7.4-10.4); Monocytes Absolute Auto 0.7 K/mm3 (0.1-0.6); Monocytes Percent Auto 5.6 % (2.6-8.5); Neutrophils Absolute Auto 7.7 K/mm3 (1.3-6.7); Neutrophils Percent Auto 66.7 % (45.5-73.1); Platelet Count Result 228 k/mm3 (150-375); Red Blood Count 5.37 M/mm3 (4.6-6.20); Red Cell Distribution Width 13.2 % (11.5-14.5); White Blood Count 11.5 K/mm3 (4.5-10.0)
[2024-07-28 11:08] LABS: Alanine Aminotransferase 46 U/L (6-50); Albumin Level 4.2 g/dL (3.5-5.1); Alkaline Phosphatase 107 U/L (38-126); Anion Gap 8 mmol/L (4-12); Aspartate Amino Transferase 39 U/L (17-59); Bilirubin,Total 1.3 mg/dL (0.2-1.3); Blood Urea Nitrogen 17 mg/dL (9-20); CRP < 0.5 mg/dL (<1.0); Calcium 9.4 mg/dL (8.4-10.2); Carbon Dioxide 25 mmol/L (22-30); Chloride 103 mmol/L (98-107); Estimated CRCL calculation 106 ml/min; Estimated Glomerular Filt Rate > 60; Glucose 108 mg/dL (65-110); Potassium 3.7 mmol/L (3.4-5.0); Sodium 136 mmol/L (137-145)
[2024-07-28 11:49] VITALS: BP 169/107; PULSE 68; RESP 16; O2SAT 99
--- NOTE | 2024-07-28 12:18 | ED_ITS ---
HPI - Extremity Injury (Upper) General Chief Complaint: Extremity Injury, Upper Stated Complaint: right elbow pain Time Seen by Provider: 07/28/24 11:00 History of Present Illness HPI narrative: Pt presents with complaints of right elbow pain. Pt denies injury but leans on elbows a lot at work. Pt tried tennis elbow strap over weekend without relief. Related Data Allergies Allergy/AdvReac Type Severity Reaction Status Date / Time No Known Allergies Allergy Verified 07/28/24 08:35 Review of Systems 2 Review of Systems: All systems reviewed & are unremarkable except as noted in HPI and below Exam 2 Const: General: healthy appearing and no acute distress Nutritional Appearance: well nourished Orientation/consciousness: patient oriented x3 Limitations: no limitations Eyes: Pupils: Equal, round and reactive pupils present EOM: EOMs intact bilaterally Chest: Chest palpation & inspection: normal inspection of the chest Resp: Effort & Inspection: normal respiratory effort Auscultation: clear to auscultation bilaterally Cardio: Rate: regular rate Rhythm: regular rhythm Skin: Other: mild erythema over olecrenon bursa Neuro: General: patient oriented x3 and moves all extremities Speech: n ormal speech Extrem: Other: tender over lateral epicondule and redness over olecrenon bursa Psych: Mental Status: mental status grossly normal Affect: normal affect Attitude: cooperative Course Vital Signs Vital signs: Vital Signs Temperature 98 F 07/28/24 08:37 Pulse Rate 78 07/28/24 08:37 Respiratory Rate 16 07/28/24 08:37 Blood Pressure 187/107 H 07/28/24 08:37 Pulse Oximetry 99 07/28/24 08:37 Oxygen Delivery Room Air 07/28/24 08:37 Temperature 98 F 07/28/24 08:37 Pulse Rate 80 07/28/24 13:07 Respiratory Rate 14 07/28/24 13:07 Blood Pressure 130/74 07/28/24 13:07 Pulse Oximetry 98 07/28/24 13:07 Oxygen Delivery Room Air 07/28/24 08:37 MDM - Extremity Injury (Upper) MDM Narrative Medical decision making narrative: Pt presents with right elbow pain and redness. could be olecrenon bursitis or lateral epicondylitis. will get labs and x ray. x rays non acute, l;abs unremarkable. home on nsaids. Lab Data 07/28/24 10:48 07/28/24 10:48 Labs: Lab Results 07/28/24 Range/Units 10:48 WBC 11.5 H (4.5-10.0) K/mm3 RBC 5.37 (4.6-6.20) M/mm3 Hgb 15.9 (14.0-18.0) g/dL Hct 45.9 (42.0-52.0) % MCV 85.5 (80-100) fl MCH 29.6 (26-34) pg MCHC 34.6 (32-36) g/dl RDW 13.2 (11.5-14.5) % Plt Count 228 (150-375) k/mm3 MPV 8.6 (7.4-10.4) fl Immature Gran % (Auto) 0.3 (0-0.5) % Neut % (Auto) 66.7 (45.5-73.1) % Lymph % (Auto) 16.2 L (18.3-44.2) % [place] % (Auto) 5.6 (2.6-8.5) % Eos % (Auto) 9.5 H (0-4.4) % Baso % (Auto) 1.7 H (0.2-1.2) % Lymph # (Auto) 1.87 (0.9-3.2) K/mm3 [place] # (Auto) 0.7 H (0.1-0.6) K/mm3 Eos # (Auto) 1.1 H (0-0.3) K/mm3 Baso # (Auto) 0.2 H (0.0-0.1) K/mm3 Abs Immat Gran (auto) 0.04 H (0.00-0.031) K/mm3 Absolute Neuts (auto) 7.7 H (1.3-6.7) K/mm3 Absolute Nucleated RBC 0.000 (0.0-0.012) K/mm3 Nucleated RBC % 0.0 (0.0-0.2) % ESR 21 H (0-20) mm/hr Sodium 136 L (137-145) mmol/L Potassium 3.7 (3.4-5.0) mmol/L Chloride 103 (98-107) mmol/L Carbon Dioxide 25 (22-30) mmol/L Anion Gap 8 (4-12) mmol/L BUN 17 (9-20) mg/dL Creatinine 1.06 (0.7-1.3) mg/dL Estim Creat Clear Calc 106 ml/min Estimated GFR > 60 (59 - ) Glucose 108 (65-110) mg/dL Calcium 9.4 (8.4-10.2) mg/dL Total Bilirubin 1.3 (0.2-1.3) mg/dL AST 39 (17-59) U/L ALT 46 (6-50) U/L Alkaline Phosphatase 107 (38-126) U/L C-Reactive Protein < 0.5 (<1.0) mg/dL Total Protein 7.0 (6.3-8.2) g/dL Albumin 4.2 (3.5-5.1) g/dL Discharge Plan Discharge Clinical Impression: Epicondylitis, lateral (tennis elbow), Bursitis, olecranon Patient Disposition: Home, Self-Care Condition: Stable Instructions: Antibiotic Form, Tennis Elbow (ED), Elbow Bursitis (ED) Patient Language: German Prescriptions: New naproxen [Naprosyn] 500 mg tablet 500 mg PO BID Qty: 20 0RF No Action ondansetron 4 mg tablet,disintegrating 4 mg PO Q8H PRN (Reason: nausea and vomiting) Qty: 10 0RF Follow-up/Referrals: Aren,MD Yimi [Primary Care Provider] - Stand Alone Forms: Work/School Release IP
[2024-07-28 12:26] LABS: Erythrocyte Sedimentation Rate 21 mm/hr (0-20)
[2024-07-28 13:07] VITALS: BP 130/74; PULSE 80; RESP 14; O2SAT 98
--- OUTSIDE RECORDS SUMMARY | 2024-07-28 13:41 | XMS_ITS | Clinical Summary ---
Author Organization [facility] Address [address] [place] [id number] Care Team Providers Care Tower Cleaner Name Role Phone Unavailable Primary Care Provider [...]
--- OUTSIDE RECORDS SUMMARY | 2024-07-28 13:41 | XMS_ITS | Clinical Summary ---
Author Organization [facility] Address [address] [place] [address] Care Team Providers Care Frame Opener Name Role Phone Delfino Younger MD Primary Care Provider [phone] Allergies Active Allergy Reactions Criticality Noted Date [...] hyperlipidemia 10/08/2023 Coronary artery disease invo lving tetlin coronary artery of tetlin heart without angina pectoris 04/06/2023 STEMI (ST elevation myocardial infarction) 03/12 NSTEMI (non-ST elevated myocardial infarction) 1 05/12/2022 Former smoker 02/01/2015 Overview (08/10/2016): Ex smoker Knee pain 02/01/2015 Overview (08/10/2016): Knee pain Hypertension 02/01/2015 Overview (08/10/2016): Hypertension Migraine 02/01/2015 Overview (08/10/2016): Migraines Medical History Medical History Date Comments Hx Other Medical Bone cyst remov al 1983; Comments: [facility] 02/02/2015 - Hx Other Medical Right heel repl aced 1984.; Comments: [facility] 02/02/2015 - Hx Other Medical Kidney stent 19 & 1993.; Comments: [facility] 02/02/2015 - Hx Other Medical Hernia 2005.; C omments: [facility] 02/02/2015 - Hx Other Medical Abdominal absce ss 2009.; Comments: [facility] 02/02/2015 - Hx Other Medical Right carpal an d cubital tunnel release 2014.; Comments: [facility] 02/02/2015 - Hypertension Family History Medical History Relation Name Comments Valvular heart disease Father Other Other Family history of diabetes, hypertension, and arthritis.; Relation Name Status Comments Father Other Social History Tobacco Use Types Packs/Day Years Used Date Smoking Tobacco: Former Cigarettes Smokeless Tobacco: Never Tobacco Cessation:Counseling Given: Not Answered [facility] Utilities Answer Date Recorded In the past 12 months has [employer], [employer], or water [employer] threatened to shut off services in your [...] week 03/15/2023 How often do you attend [facility] or hoahaoism services? Never 03/15/2023 Do you belong to any clubs o r organizations such as confucianism groups, unions, fraternal or athletic groups, or [...] place to sleep or slept in a [place] facility (including now)? No 03/15/2023 Personal Safety Answer Date Recorded Have you ever been in or are you currently in a harmful physical or emotional relationship or is someone making you feel afraid or unsafe? 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 Gender Identity Not on file Sexual Orientation Not on file Obstetrics History Last Filed Vital Signs Vital Sign Reading Time Taken Comments Blood Pressure 116/80 01/09/2024 2:20 PM CDT Pulse 86 01/09/2024 2:20 PM CDT Temperature 36.6 C (97.9 F) 03/15/2023 4:00 AM PASSENGER TIRE BUILDER Respiratory Rate 22 03/15/2023 10:07 AM PASSENGER TIRE BUILDER Oxygen Saturation 98% 01/09/2024 2:20 PM CDT [...] this topic Medical Devices Implanted Type Area Report Checker Device Identifier Shelf Expiration Date Model / Serial / Lot [employer] Stent Drug Eluting S Megatron Mr [id number] - [id number] - [id number] Implanted:Qty: 1 on 03/13/2023 by Josiah Del Rosario MD at [facility] Stent Left: Anterior Descending Cornary Artery [employer] Veda 07/04/2023 [id number] / [id number] / [id number] Insurance [facility] CHOICE PLUS [facility] CHOICE PLUS [facility] CHOICE PLUS Advance Directives For more information, please contact: [phone] * Full Code (Latest Code Status on File) Date Activated Date Inactivated Comments 03/12/2023 5:49 PM 03/15/2023 3:57 PM Care Teams Frame Opener Relationship Specialty Start Date End Date Delfino Younger MD PCP - General Family Medicine 03/15/23
--- OUTSIDE RECORDS SUMMARY | 2024-07-28 13:41 | XMS_ITS | CONTINUITY OF CARE DOCUMENT ---
Author Name patrice ibrahim Address Unknown Organization [facility] Address [address] [facility] [address] [place] [address] Phone [phone] Care Team Providers Care Car Coupler Name Role Phone patrice ibrahim Unavailable Unavailable INSURANCE PROVIDERS Payer name Policy type / Coverage type Leo red alliance party ID [facility] [id number]
--- OUTSIDE RECORDS SUMMARY | 2024-07-28 13:41 | XMS_ITS ---
Author Organization [facility] yessy Address [address] [facility] [address] [place] [address] Care Team Providers Care Nanosystems Engineer Name Role Phone Delfino Younger Primary Care Provider REASON FOR VISIT Refer to Rheumatology Encounters Encounter Location Date Provider Diagnosis [facility] [address] [facility] [address] [place] [address] 12/24/2023 Delfino Younger Plan Of Treatment No Information Progress Notes * CHANRoddyAdalidOB: 6 (48 yo M)Acc No.[id number]:12/24/2023 Patient: Gualberto JACOBS :1975 A ge:48 Y S ex:Male Address:[address] [place], [address] * true * Date: Generated for Printi ng/Mindyg/eTransmitting on: 0 07/28/2024 01:41 PM CDT
--- OUTSIDE RECORDS SUMMARY | 2024-07-28 13:42 | XMS_ITS | Clinical Summary ---
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
--- OUTSIDE RECORDS SUMMARY | 2024-07-28 13:42 | XMS_ITS | Referral Summary ---
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 Name Role Phone Delfino Younger MD Primary [...] hyperlipidemia 10/08/2023 Coronary artery disease invo lving [place] coronary artery of [place] heart without angina pectoris 04/06/2023 STEMI (ST elevation myocardial infarction) 03/12 NSTEMI (non-ST elevated myocardial infarction) 1 05/12/2022 Former smoker 02/01/2015 Overview (08/10/2016): Ex smoker Knee pain 02/01/2015 Overview (08/10/2016): Knee pain Hypertension 02/01/2015 Overview (08/10/2016): Hypertension Migraine 02/01/2015 Overview (08/10/2016): Migraines Social History Tobacco Use Types Packs/Day Years Used Date Smoking Tobacco: Former Cigarettes Smokeless Tobacco: Never Tobacco Cessation:Counseling Given: Not Answered [facility] Utilities Answer Date Recorded In the past 12 months has [employer], gas, oil, or water [employer] threatened to shut off services in your [...] often do you attend chur ch or hindu services? 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 Gender Identity Not on file Sexual Orientation Not on file Last Filed Vital Signs Vital Sign Reading Time Taken Comments Blood Pressure 116/80 01/09/2024 2:20 PM CDT Pulse 86 01/09/2024 2:20 PM CDT Temperature 36.6 C (97.9 F) 03/15/2023 4:00 AM BUSINESS INSTRUCTOR Respiratory Rate 22 03/15/2023 10:07 AM BUSINESS INSTRUCTOR Oxygen Saturation 98% 01/09/2024 2:20 PM CDT Inhaled Oxygen Concentration - - Weight 122.9 kg (271 lb) 01/09/2024 2:20 PM CDT Height 182.9 cm (6') 01/09/2024 2:20 PM CDT Body Mass Index 36.75 01/09/2024 2:20 PM CDT Plan of Treatment Not on file Medical Devices Implanted Type Area Ground Operations Crew Member Device Identifier Shelf Expiration Date Model / Serial / Lot [employer] Veda Stent Drug Eluting S Megatron Mr [id number] - [id number] - [id number] Implanted:Qty: 1 on 03/13/2023 by Josiah Del Rosario MD at [facility] Stent Left: Anterior Descending Cornary Artery Decision Curve Veda 07/04/2023 [id number] / [id number] / [id number] Insurance [facility] CHOICE PLUS [facility] CHOICE PLUS [facility] CHOICE PLUS Advance Directives For more information, please contact: [phone] * Full Code (Latest Code Status on File) Date Activated Date Inactivated Comments 03/12/2023 5:49 PM 03/15/2023 3:57 PM Care Teams Beating Machine Operator Relationship Specialty Start Date End Date Delfino Younger MD PCP - General Family Medicine 03/15/23
--- OUTSIDE RECORDS SUMMARY | 2024-07-28 13:42 | XMS_ITS ---
Author Organization [facility] yessy Address [address] [facility] [address] [place] [address] Care Team Providers Care Receiving Associate Store Name Role Phone Delfino Younger Primary Care Provider Haylie Hernandez Unavailable [phone] Results Component Value Reference Range Notes MIA SCREEN/REFLEX TITER/STEPHANIE LEAH Reviewed date:01/03/2024 11:38:17 AM Interpretation: Performing Lab:[facility], [address] [place] [address], [id number] Notes/Report: Anti-Nuclear Antibody Negative Negative MIA titers and patterns are performed using an immunofluorescence assay technology. Follow up testing for positive specimens, if required, is performed using multiplex bead technology. G6PD, QUANTITATIVE, RBC Reviewed date:01/03/2024 11:38:17 AM Interpretation: Performing Lab:[facility], [address] [place] [address], [id number] Notes/Report: G-6-PD, RBC 20.6 7.0-20.5 U/g Hgb Performing Organization Information: Site ID: CB Name: [facility] Address: [address] [place] [phone] Director: Callum Valencia CYCLIC CITRULLINATED PEPTIDE (CCP) AB, IgG/IgA Reviewed date:01/03/2024 11:38:17 AM Interpretation: Performing Lab:[facility], [address] [place] [address], [id number] Notes/Report: CCP Antibodies 5 0-19 units Negative <20 Weak positive 20 - 39 Moderate positive 40 - 59 Strong positive >59 Performed at: [address] [place], [place] [id number] Student Activities Director: Murray Wolfe PhD, Phone: [phone] SEDIMENTATION RATE, ESR Reviewed date:01/03/2024 11:38:17 AM Interpretation: Performing Lab:[facility], [address] [place] [address], [id number] Notes/Report: Sedimentation Rate 66 (Based on doc umented legal sex) 0-15 mm/Hour CBC W/DIFF Reviewed date:01/03/2024 11:38:17 AM Interpretation: Performing Lab:[facility], [address] [place] [address], [id number] Notes/Report: WBC 12.7 3.5-10.5 10'3/uL RBC 5.14 [...] No additional or changed results are expected. CMP(COMPREHENSIVE METABOLIC PANEL) Reviewed date:01/03/2024 11:38:17 AM Interpretation: Performing Lab:[facility], [address] [place] [address], [id number] Notes/Report: Sodium 135 133-146 mmol/L Potassium 3.6 [...] 13-39 units/L Bilirubin, Total 2.5 0.2-1.2 mg/dL URIC ACID Reviewed date:01/03/2024 11:38:17 AM Interpretation: Performing Lab:[facility], [address] [place] [address], [id number] Notes/Report: Uric Acid 9.5 4.4-7.6 mg/dL RHEUMATOID FACTOR (RF), MALINI TITATIVE Reviewed date:01/03/2024 11:38:17 AM Interpretation: Performing Lab:[facility], [address] [place] [address], [id number] Notes/Report: Rheumatoid Factor, Quantitative Interpretation Negative Negative RF, Quantitation <10 <=14 IU/mL CRP (C-REACTIVE PROTEIN) Reviewed date:01/03/2024 11:38:16 AM Interpretation: Performing Lab:[facility], [address] [place] [address], [id number] Notes/Report: C-Reactive Protein 22.0 0.0-10.0 mg/L REASON FOR VISIT gout, referred by Dr. Younger Medications Medication SIG (Take, Route, Frequency, Duration) Notes Start Date End Date Status Metoprolol Succinate ER 25 MG 1 tablet O rally Once a day for 30 day(s) Active Atorvastatin Calcium 40 MG 1 tablet Oral ly Once a day for 30 day(s) Active methylPREDNISolone 4 MG taper Orally for 6 days 01/01/2024 01/07/2024 Active Colchicine 0.6 MG 1 tablet Orally Twice a day for 30 days 01/01/2024 03/01/2024 Active Brilinta 90 MG TAKE 1 TABLET [...] last smoked? 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 cc Dr. Younger 01/01/2024 Idiopathic chronic gout of right foot [...] for referring this patient. cc Dr. Younger 01/01/2024 Pain of foot, unspecified laterality (ICD-10 [...] patient. cc Dr. Younger Plan Of Treatment Medication Medication Name Sig Start Date Stop Date Notes methylPREDNISolone 4 MG taper Orally for 6 days 01/01/2024 01/07/2024 Colchicine 0.6 MG 1 tablet Orally Twic e a day for 30 days 01/01/2024 03/01/2024 Next Appt Details Follow Up: 2 Weeks, Reason: Progress Notes * Olga GILESOB: 6 (48 yo M)Acc No.[id number]:01/01/2024 Progress Notes Patient: Gualberto JACOBS Provider: Lorena HERNANDEZ MD :1975 A ge:48 Y S ex:Male Date:01/01/2024 Address:[address] [place], [place] [id number] Pcp:Delfino Younger Subjective: * Chief Complaints: * G outreferred by Dr. Younger * HPI: n ew patient: He had gout attack involving the right foot about 3 years ago. He had another flare a year and a half ago involving the left foot. He went to ER or urgent care and was given steroids. The most recent flare started 5 weeks ago. It started in the left foot. He went to ER and was given IV steroids. He was s ent home oral steroids, which he finisged 2 weeks ago. Foot Xray was taken n the ER. The left foot has gotten better. The right foot and right ankle started hurting yesterday. The pain is severe today. He has noticed swelling in the right foot and right ankle. He has been taking HCTZ. He drinks 1 beer per week. He has stopped eating shrimp. He has a history of kidney stones. Father: gout. * ROS: G eneral / Constitutional: Patient denies f ever. P atient complains of f atigue. O phthalmologic: Patient denies d ry eye(s). E NT: Patient denies d ry mouth, oral ulcers. E ndocrine: Patient denies h eat intolerance. R espiratory: Patient denies c ough, shortness of breath. ? C ardiovascular: Patient denies c hest pain. G astrointestinal: Patient denies a bdominal pain, blood in stool, diarrhea.? H ematology: Patient denies e asy bleeding, easy bruising. ? M usculoskeletal: Patient complains of s ee HPI. S kin: Patient denies r scott, hair loss, photosensitivity, Raynaud's. N eurologic: Patient denies t ingling / numbness, headache. ? P sychiatric: Patient denies a nxiety, depressed mood, difficulty sleeping. * Medical History: * Surgical History: R ight foot reconstruction (in 5th grade) Right kidney stones (larger): had stents, lithotripsy ulnar nerve transposition, right carpal tunnel release, right Abdominal washout for intra-abdominal staph infection (unknown if MRSA) periumbilical hernia repair, right; no mesh HANG to LAD 03/2023 * Hospitalization/Major Diagno stic Procedure: * Family History: - HTN: mother- DM: mother. * Social History: T obacco Use: T obacco Control (Standard) T obacco use: F ormer smoker, H ow long has it been since you last smoked? 6 -12 months. D rug/Alcohol: D o you drink alcohol?: Rarely. M iscellaneous: E xercise: No. * Medications: T akingAtorvastatin Calcium 40 MG [...] Chewable 1 tablet Orally Once a day DiscontinuedLosartan Potassium-HCTZ 50-12.5 MG Tablet take 1 tablet by oral route once daily Oral 1 Medication List reviewed and reconciled with the patientDiscontinued Losartan Potassium-HCTZ 50-12.5 MG Tablet take 1 tablet by oral route once daily Oral 1 Medication List reviewed and reconciled with the patient Objective: * Vitals: B P:110/80mm Hg, HR:93/min, Temp:98.1F, Oxygen sat %:98%, Ht:72in. * Examination: G eneral Examination: General appearance: a lert, well-nourished and in no acute distress . Head: n ormocephalic, atraumatic . Eyes: n ormal. Ears: n ormal . Neck / thyroid: n kaylie is supple, with full range of motion.? Lymph nodes: n o cervical lymphadenopathy. Skin: s kin is warm and dry, with no rashes, no tophi. Heart: r egular rate and rhythm. Lungs: c lear to auscultation bilaterally. Abdomen: s oft, nontender. P sychiatry: Affect / mood: a ppropriate. R heumatology: J OINT EXAM R big toe MTP and IP joints tender and mildly swollen, R ankle tender laterally and mildly swollen. N eurology: n onfocal. Assessment: * Assessment: 1. 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 P ain in unspecified joint - M25.50 3 . P ain of foot, unspecified laterality - M79.673 48 year old male with gout f iker involving the feet. He was treated with [...] for referring this patient. cc Dr. Younger Plan: * Treatment: Value Reference Range U rosetta Acid 9.5 H 4.4-7.6 - mg/dL * This lab was reviewed by Lauren Hernandez on 01/03/2024 at 11:38 AM CDT ?LAB: CMP(COMPREHENSIVE METABOLIC PANEL)* Value Reference Range A lbumin 4.2 3.5-5.0 - g/dL * A lkaline Phosphatase 107 H 34-104 - units/L * A LT (SGPT) 13 11-51 - units/L * A nion Gap 10 4-13 - mmol/L * A ST (SGOT) 12 L 13-39 - units/L * C alcium 9.6 8.3-10.5 - mg/dL * C hloride 99 98-107 - mmol/L * C O2 26 21-31 - mmol/L * C reatinine 1.35 H 0.60-1.30 - mg/dL * e GFRcr (CKD-EPI 2020) 65 >=60 - mL/min/1.73 m2 * G lucose 105 H 70-100 - mg/dL * P otassium 3.6 3.5-5.1 - mmol/L * P rotein 7.2 6.4-8.3 - g/dL * S odium 135 133-146 - mmol/L * T otal Bilirubin 2.5 H 0.2-1.2 - mg/dL * U edyta Nitrogen 17 7-25 - mg/dL * This lab was reviewed by Lauren Hernandez on 01/03/2024 at 11:38 AM CDT ?LAB: CRP (C-REACTIVE PROTEIN)* Value Reference Range C RP 22.0 H 0.0-10.0 - mg/L * This lab was reviewed by Lauren Hernandez on 01/03/2024 at 11:38 AM CDT ?LAB: MIA SCREEN/REFLEX TITER/PATTERN* Value Reference Range A NA Negative Negative - * This lab was reviewed by Lauren Hernandez on 01/03/2024 at 11:38 AM CDT ?LAB: SEDIMENTATION RATE, ESR* Value Reference Range E SR 66 H (Based on documented legal sex) 0-15 - mm/Hour * This lab was reviewed by Lauren Hernandez on 01/03/2024 at 11:38 AM CDT ?LAB: CYCLIC CITRULLINATED PEPTIDE (CCP) AB, IgG/IgA* Value Reference Range C CP Antibodies IgG/IgA 5 0-19 - units * This lab was reviewed by Lauren Hernandez on 01/03/2024 at 11:38 AM CDT ?LAB: CBC W/DIFF* Value Reference Range W BC 12.7 H 3.5-10.5 - 10'3/uL * R BC 5.14 (Based on documented legal sex) 4.30-5.80 - 10'6/uL * H GB 15.1 (Based on documented legal sex) 13.0-17.5 - g/dL * H CT 43.9 (Based on documented legal sex) 38.0-50.0 - % * M CV 85.4 80.0-99.0 - fL * M CH 29.4 27.0-34.0 - pg * M CHC 34.4 32.0-35.5 - g/dL * R DW 13.6 11.0-15.0 - % * P LT 239 150-400 - 10'3/uL * M PV 9.1 8.8-12.1 - fL * N RBCs 0.0 0.0 - % * A bsolute NRBC's 0.0 No reference range e stablished - 10'3/uL * N eutrophils 83.6 H 34.0-73.0 - % * L ymphocytes 9.2 L 15.0-50.0 - % * M onocytes 5.5 1.0-15.0 - % * B asophils 0.7 0.0-2.0 - % * E osinophils 0.8 0.0-8.0 - % * I mmature Granulocytes 0.2 No defined referenc e range - % * A bsolute Basophils 0.1 0.0-0.3 - 10'3/uL * A bsolute Eosinophils 0.1 0.0-0.6 - 10'3/uL * A bsolute Immature Granulocytes 0.0 0.00-0.10 - 10'3/uL * A bsolute Lymphocytes 1.2 1.0-4.0 - 10'3/uL * A bsolute Monocytes 0.7 0.2-1.0 - 10'3/uL * A bsolute Neutrophils 10.6 H 1.5-8.0 - 10'3/uL * This lab was reviewed by Lauren Hernandez on 01/03/2024 at 11:38 AM CDT ?LAB: RHEUMATOID FACTOR (RF), QUANTITATIVE* Value Reference Range R heumatoid Factor <10 <=14 - IU/mL * R heumatoid Factor Interp Negative Negative - * This lab was reviewed by Lauren Hernandez on 01/03/2024 at 11:38 AM CDT ?LAB: G6PD, QUANTITATIVE, RBC* Value Reference Range G [id number]-6-[id number] DEHYDROGENASE 20.6 H 7.0-20. 5 - U/g Hgb * This lab was reviewed by Lauren Hernandez on 01/03/2024 at 11:38 AM CDT * Procedure Codes: * Follow Up: 2 Weeks * Billing Information: * Visit Code: 38953 Office Visit, New Pt., Level 4. * Procedure Codes: * Sign off status: Completed true * Provider: Lorena HERNANDEZ MD Date: 0 01/01/2024 Generated for Luis Antonio prado/Abril/Sher on: 07/28/2024 01:41 PM CDT History and Physical Notes * HPI (History of Present Illness) Category Sub-Category Detail Notes Category Not es new patient He had gout attack involving the right foot about 3 years ago. He had another flare a year and a half ago involving the left foot. He went to ER or urgent care and was given steroids. The most recent flare started 5 weeks ago. It started in the left foot. He went to ER and was given IV steroids. He was sent home oral steroids, which he finisged 2 weeks ago. Foot Xray was taken n the ER. The left foot has gotten better. The right foot and right ankle started hurting yesterday. The pain is severe today. He has noticed swelling in the right foot and right ankle. He has been taking HCTZ. He drinks 1 beer per week. He has stopped eating shrimp. He has a history of kidney stones. Father: gout Examination Category Sub-Category Detail Notes Category Not es Rheumatology JOINT EXAM R big toe MTP and IP joints tender and mildly swollen, R ankle tender laterally and mildly swollen Neurology nonfocal Psychiatry Affect / mood: appropriate General Examination General appearance: alert, w ell-nourished and in no acute distress Head: normocephalic, atrau matic Eyes: normal Ears: normal Neck / thyroid: neck is supple, with full range of motion Heart: regular rate and rhy thm Lungs: clear to auscultatio n bilaterally Abdomen: soft, nontender Skin: skin is warm and dry , with no rashes, no tophi Lymph nodes: no cervical lymphade nopathy
== END 2024-07-28 13:10 | disposition home or self-care (01) ==
PROVIDERS: Emergency Provider Emergency Medicine; PCP Internal Medicine Infectious Disease
DX: M77.11 Lateral epicondylitis, right elbow (principal)
CPT/HCPCS: 36415; 73080; 80053; 85025; 85652; 86140; 99283